=== PATIENT | female | born 1965 | race Caucasian/White ===

== ENCOUNTER 2019-06-09 06:23 | Inpatient (IN) ==
[2019-06-09] MEDS ORDERED: *HR* Promethazine 25 MG/ML VIAL IVP PRN (07:05)
[2019-06-09] MEDS ORDERED: *HR* OxyCODONE Immed Rel 5 MG TABLET PO PRN (07:05)
[2019-06-09] MEDS ORDERED: Ondansetron 4 MG/2 ML VIAL IVP ONE (07:05)
[2019-06-09] MEDS ORDERED: Lidocaine -MPF 4% 5 ML AMPUL ONE (07:11)
[2019-06-09] MEDS ORDERED: Dexamethasone 4 MG/ML VIAL ONE (07:11)
[2019-06-09] MEDS ORDERED: *HR* Rocuronium Bromide 50 MG/5 ML VIAL ONE ×2 (07:11→09:37)
[2019-06-09] MEDS ORDERED: Lidocaine -MPF 2% 2 ML VIAL ONE (07:11)
[2019-06-09] MEDS ORDERED: *HR* FentaNYL (PF) 100 MCG/2 ML VIAL ONE ×2 (07:14→07:17)
[2019-06-09] MEDS ORDERED: *HR* Midazolam HCl 2 MG/2 ML VIAL ONE (07:14)
[2019-06-09] MEDS ORDERED: *HR* Propofol 200 MG/20 ML VIAL IVP ONE (07:15)
[2019-06-09] MEDS ORDERED: Famotidine 20 MG TABLET PO ONE (07:30)
[2019-06-09] MEDS ORDERED: CeFAZolin Syr 2,000MG/20 ML 2,000 MG/20 ML SYRINGE IVPB ONE (07:45)
[2019-06-09] MEDS ORDERED: Ringers Solution, Lactated 1,000 ML IVC SCH (07:45)
[2019-06-09] MEDS ORDERED: Bupivacaine/EPI 1:200k 0.5%PF 30 ML VIAL ONE (07:46)
[2019-06-09] MEDS ORDERED: Lidocaine/EPI 1:100k 1% 50 ML VIAL ONE (07:46)
[2019-06-09] MEDS ORDERED: Bupivacaine/EPI 1:200k 0.25%PF 30 ML VIAL ONE (07:47)
[2019-06-09] MEDS ORDERED: Acetaminophen IV 1,000 MG/100 ML INFUS..BTL ONE (07:58)
[2019-06-09] MEDS ORDERED: Famotidine 20 MG/2 ML VIAL ONE (07:59)
[2019-06-09] MEDS ORDERED: EPHEDrine 50 MG/ML VIAL ONE (08:28)
[2019-06-09] MEDS ORDERED: MetroNIDAZOLE 500 MG/100 ML 500 MG/100 ML BAG IVPB ONE ×2 (08:42→09:29)
[2019-06-09] MEDS ORDERED: *HR* HYDROMORPHONE 2 MG/ML VIAL ONE (09:37)
[2019-06-09] MEDS ORDERED: *HR* PHENYLEPHRINE 1,000 MCG/10 ML SYRINGE IVP ONE (11:08)
[2019-06-09] MEDS ORDERED: Lidocaine/EPI 1:100k 1% 20 ML VIAL ONE (12:00)
[2019-06-09] MEDS ORDERED: Albumin Human 5% 25.0 GM/500 ML VIAL ONE (12:13)
[2019-06-09] MEDS ORDERED: Ondansetron 4 MG/2 ML VIAL ONE (12:47)
[2019-06-09] MEDS: *HR* HYDROmorphone (PF) 1 MG/ML SYRINGE IVP PRN ×2 (13:38→13:44)
[2019-06-09] MEDS ORDERED: clonazePAM 1 MG TABLET PO PRN (14:25)
[2019-06-09] MEDS ORDERED: Naloxone 0.4 MG/ML INJ IVP PRN (14:25)
[2019-06-09] MEDS ORDERED: *HR* HYDROmorphone (PF) 1 MG/ML SYRINGE IVP PRN (14:25)
[2019-06-09] MEDS: Ringers Solution, Lactated 1,000 ML IVC SCH ×2 (16:18→20:26)
[2019-06-09] MEDS: Piperacillin/Tazobactam 3.375 GM in 0.9 % Sodium Chloride Mini Bag 100 ML IVPB SCH ×2 (16:19→23:09)
[2019-06-09] MEDS: Lithium Carbonate 300 MG CAPSULE PO SCH (16:56)
[2019-06-09] MEDS: *HR* OxyCODONE/APAP 5/325 TABLET PO PRN ×2 (16:56→20:25)
[2019-06-09] MEDS: Ondansetron 4 MG/2 ML VIAL IVP PRN (16:56)
[2019-06-09] MEDS: Pyridostigmine Br 60 MG TABLET PO SCH (23:05)
[2019-06-09] MEDS: traZODone 50 MG TABLET PO SCH (23:06)
[2019-06-09] MEDS: rOPINIRole 0.25 MG TABLET PO SCH (23:06)
[2019-06-10] MEDS: *HR* OxyCODONE/APAP 5/325 TABLET PO PRN ×6 (01:27→22:53)
[2019-06-10] MEDS ORDERED: Ondansetron 4 MG/2 ML VIAL IVP PRN (01:38)
[2019-06-10 08:39] LABS: Basophils % 0.2 %; Hematocrit 23.7 % (35.3-44.9); Hemoglobin 7.6 g/dL (11.5-15.4); Immature Granulocytes % 0.3 % (0-4); Lymphocytes # 1.3 K/mcL (0.6-4.6); Lymphocytes % 10.9 %; Mean Corpuscular HGB Conc 32.1 g/dL (31.6-35.5); Mean Corpuscular Hemoglobin 33.3 pg (28.0-33.3); Mean Corpuscular Volume 103.9 fL (83.0-100.0); Mean Platelet Volume 10.6 fL (9.4-12.4); Monocytes # 0.8 K/mcL (0.0-1.3); Monocytes % 7.1 %; Neutrophils # 9.4 K/mcL (1.6-8.9); Platelet Count 190 K/mcL (140-400); Red Blood Count 2.28 M/mcL (3.82-4.97); Red Cell Distribution Width 13.5 % (11.5-14.5); Segmented Neutrophils % 81.5 %; White Blood Count 11.5 K/mcL (4.3-11.1)
[2019-06-10] MEDS: Pyridostigmine Br 60 MG TABLET PO SCH ×2 (09:08→22:52)
[2019-06-10] MEDS: Lithium Carbonate 300 MG CAPSULE PO SCH ×2 (09:10→18:35)
[2019-06-10] MEDS: Piperacillin/Tazobactam 3.375 GM in 0.9 % Sodium Chloride Mini Bag 100 ML IVPB SCH (09:12)
[2019-06-10] MEDS: Ondansetron 4 MG/2 ML VIAL IVP PRN (13:43)
[2019-06-10] MEDS: Ibuprofen 600 MG TABLET PO PRN (19:51)
[2019-06-10] MEDS: traZODone 50 MG TABLET PO SCH (22:51)
[2019-06-10] MEDS: rOPINIRole 0.25 MG TABLET PO SCH (22:54)
[2019-06-11] MEDS: Ibuprofen 600 MG TABLET PO PRN ×3 (02:57→12:57)
[2019-06-11] MEDS: Pyridostigmine Br 60 MG TABLET PO SCH (07:38)
[2019-06-11] MEDS: Lithium Carbonate 300 MG CAPSULE PO SCH (07:39)
[2019-06-11 07:53] VITALS: BP 90/48
[2019-06-11] MEDS ORDERED: levoFLOXacin 500 MG TABLET PO ONE (08:14)
[2019-06-11] MEDS ORDERED: metroNIDAZOLE 500 MG TABLET PO ONE (08:14)
== END 2019-06-11 17:27 | disposition home or self-care (01) | DRG 746 ==
LOC: 1NENUOBS 06:23 → SAMDAY 06:23 → 1NENUOBS 14:20
PROVIDERS: ADMIT Obstetrics & Gynecology; ATTEND Obstetrics & Gynecology